=== PATIENT | male | born 1950 | race Two or more races ===

== ENCOUNTER 2021-04-28 22:37 | Emergency (ER) | payer OTHER ==
[~2021-04-28] VITALS: Ht 167.6 cm; Wt 57.6 kg
--- NOTE | 2021-04-28 22:40 | NUR ---
DR. NJ AT BEDSIDE FOR EVALUATION
--- NOTE | 2021-04-28 22:42 | NUR ---
CODE STROKE ACTIVATED, TELEMED IQ REQUESTED.
[2021-04-28] MEDS ORDERED: CT SWABBABLE VALVE TRANS SET 1 EA INFUS.SET MC ONE (22:46)
[2021-04-28] MEDS ORDERED: IOHEXOL-350 100 ML VIAL IV ONE (22:46)
[2021-04-28] MEDS ORDERED: IV NS 0.9% 250 ML IV ONE (22:47)
--- NOTE | 2021-04-28 22:49 | NUR ---
taken to ct
[2021-04-28 22:57] LABS: BASOPHILS % (AUTO) 0.5 % (0.0-2.0); EOSINOPHILS % (AUTO) 2.9 % (0.0-6.0); HEMATOCRIT 42 % (39-51); HEMOGLOBIN 13.9 g/dL (13.5-17.5); LYMPHOCYTES # (AUTO) 3.3 /CMM (0.8-4.8); LYMPHOCYTES % (AUTO) 42.4 % (20.0-44.0); MEAN CORPUSCULAR HGB CONC 33 g/dl (31.0-36.0); MEAN CORPUSCULAR VOLUME 94 fL (80-96); MONOCYTES # (AUTO) 0.6 /CMM (0.1-1.30); MONOCYTES % (AUTO) 7.4 % (2.0-12.0); NEUTROPHILS # (AUTO) 3.6 /CMM (1.8-8.9); NEUTROPHILS % (AUTO) 46.8 % (43.0-81.0); PLATELET COUNT (AUTO) 255 /CMM (150-450); RED BLOOD CELL COUNT(AUTO) 4.44 MIL/uL (4.5-6.0); WHITE BLOOD COUNT (AUTO) 7.7 K/uL (4.3-11.0)
--- NOTE | 2021-04-28 23:01 | NUR ---
BACK FROM CT
--- NOTE | 2021-04-28 23:02 | NUR ---
DR. NJ SPEAKING WITH RADIOLOGIST
[2021-04-28 23:04] LABS: CALCIUM, SERUM 9.2 mg/dL (8.5-10.1); CARBON DIOXIDE 31 mmol/L (21-32); CHLORIDE 106 mmol/L (98-107); CREATININE 1.2 mg/dL (0.6-1.3); GLUCOSE 129 mg/dL (74-106); POTASSIUM 3.8 mmol/L (3.5-5.1); SODIUM SERUM 143 mmol/L (136-145); UREA NITROGEN, BLOOD 13 mg/dL (7-18)
--- NOTE | 2021-04-28 23:04 | NUR ---
AT THIS TIME, PT STATED WHILE HE WAS EATING AT 2029, HE WAS "BITING HIS MOUTH" ER MD AWARE.
[2021-04-28 23:11] LABS: CHOLESTEROL 247 mg/dL (<200); HDL CHOLESTEROL 72 mg/dL (40-60); LDL 138 mg/dL (0-99); TRIGLYCERIDES 136 mg/dL (30-150)
--- NOTE | 2021-04-28 23:15 | NUR ---
NEUROLOGIST DR. SINGH SPEAKING TO PT. PT STATED HE DOES NOT WANT TO STAY IN THE HOSPITAL TO HAVE AN MRI. PER NEUROLOGIST, THE PT CAN HAVE AN MRI AN OUTPATIENT.
--- NOTE | 2021-04-28 23:19 | NUR ---
DR. NJ SPEAKING WITH RADIOLOGIST, DR. MORENO
--- NOTE | 2021-04-28 23:25 | NUR ---
PER DAUGHTER, PT TAKES PRADAXA BLOOD THINNER.
--- NOTE | 2021-04-28 23:27 | NUR ---
DR. NJ SPEAKING WITH NEUROLOGIST, DR. SINGH
--- NOTE | 2021-04-28 23:33 | NUR ---
ER MD SPEAKING TO PT REGARDING PLAN OF CARE.
--- NOTE | 2021-04-28 23:40 | NUR ---
AMISHA WORKMAN AND SPOKE TO RACHEL
--- NOTE | 2021-04-28 23:43 | NUR ---
DR. NJ SPEAKING WITH MARIO ROSARIO, DR. BROOKS
--- NOTE | 2021-04-29 00:10 | NUR ---
AMBULATED TO THE RESTROOM, WITH STEADY GAIT. DID NOT WANT TO BE PLACED IN A GOWN.
--- NOTE | 2021-04-29 01:13 | NUR ---
covid swab sent to lab
--- NOTE | 2021-04-29 01:42 | NUR ---
TRANSFER INFORMATION: PT WILL BE TRANSFERRED TO [facility] ER PER INSURANCE REQUEST ACCEPTING MD: DR. BRYSON NUMBER FOR REPORT: [phone] [facility] ETA [id number]
[2021-04-29 01:49] VITALS: BP 157/73
--- NOTE | 2021-04-29 01:59 | NUR ---
CALLED [facility], ON HOLD FOR TEN MINS. WILL CALL BACK LATER.
--- NOTE | 2021-04-29 02:20 | NUR ---
REPORT GIVEN TO FIDELINA CHAMPION FOR [employer].
--- NOTE | 2021-04-29 02:26 | NUR ---
PT TRSANSFERED TO [facility].
== END 2021-04-29 02:33 | disposition short-term general hospital (02) ==
LOC: ER 22:39
DX: G45.9 Transient cerebral ischemic attack, unspecified (principal); C34.90 Malignant neoplasm of unspecified part of unspecified bronchus or lung; Z53.09 Procedure and treatment not carried out because of other contraindication; Z20.822 Contact with and (suspected) exposure to COVID-19; Z79.02 Long term (current) use of antithrombotics/antiplatelets; Z88.0 Allergy status to penicillin; R29.700 NIHSS score 0
CPT/HCPCS: 36415; 70450; 70496; 70498; 71045; 80048; 80061; 82962; 84484; 85025; 85730; 87426; 93005; 99291; C9803; J7050; Q9967